=== PATIENT | male | born 1995 | race Two or more races ===

== ENCOUNTER 2017-04-04 09:46 | Emergency (ER) | payer OTHER ==
[2017-04-04 12:23] VITALS: BP 130/74
== END 2017-04-04 12:23 | disposition home or self-care (01) ==
LOC: ED 09:46
DX: S61.012A Laceration without foreign body of left thumb without damage to nail, initial encounter (principal); Z88.1 Allergy status to other antibiotic agents; W26.0XXA Contact with knife, initial encounter; Y93.89 Activity, other specified; Y92.89 Other specified places as the place of occurrence of the external cause; Y99.8 Other external cause status
CPT/HCPCS: J1885; J2001

== ENCOUNTER 2017-04-13 18:44 | Emergency (ER) | payer OTHER ==
[~2017-04-13] VITALS: Ht 172.7 cm; Wt 99.3 kg
[2017-04-13 20:13] VITALS: BP 150/82
== END 2017-04-13 20:13 | disposition home or self-care (01) ==
LOC: ED 18:44
DX: S61.412D Laceration without foreign body of left hand, subsequent encounter (principal); X58.XXXD Exposure to other specified factors, subsequent encounter; Y99.8 Other external cause status; Y92.89 Other specified places as the place of occurrence of the external cause

== ENCOUNTER 2017-09-20 11:19 | Emergency (ER) | payer OTHER ==
[2017-09-20 11:30] VITALS: BP 128/68
== END 2017-09-20 12:55 | disposition home or self-care (01) ==
LOC: ED 11:19
DX: S01.81XA Laceration without foreign body of other part of head, initial encounter (principal); Z88.1 Allergy status to other antibiotic agents; W22.8XXA Striking against or struck by other objects, initial encounter; Y93.89 Activity, other specified; Y99.8 Other external cause status; Y92.89 Other specified places as the place of occurrence of the external cause
CPT/HCPCS: J2001

== ENCOUNTER 2017-09-27 08:09 | Emergency (ER) | payer OTHER ==
[~2017-09-27] VITALS: Ht 172.7 cm; Wt 93.0 kg
[2017-09-27 09:14] VITALS: BP 136/85
== END 2017-09-27 09:14 | disposition home or self-care (01) ==
LOC: ED 08:09
DX: S01.112D Laceration without foreign body of left eyelid and periocular area, subsequent encounter (principal); Z88.1 Allergy status to other antibiotic agents; X58.XXXD Exposure to other specified factors, subsequent encounter